=== PATIENT | female | born 2000 | race African-American/Black ===

== ENCOUNTER 2025-06-23 10:12 | Emergency (ER) | payer OTHER ==
[~2025-06-23] VITALS: Ht 170.2 cm; Wt 64.0 kg
[2025-06-23 10:31] VITALS: O2SAT 99
[2025-06-23 11:54] LABS: BASOPHILS % 1.0 % (0.0-2.0); EOSINOPHILS % 2.9 % (0.0-5.0); HEMATOCRIT. 37.6 % (36.0-48.0); HEMOGLOBIN. 12.3 g/dL (12.0-16.0); LYMPHOCYTES % 22.8 % (20.0-50.0); MEAN PLATELET VOLUME 8.6 fl (7.4-10.4); MONOCYTES % 5.6 % (2.0-8.0); NEUTROPHILS % 67.7 % (40.0-76.0); PLATELET 300 x1000/uL (130-400); RED BLOOD CELL COUNT 5.29 mill/uL (4.2-5.4); RED CELL DISTRIBUTION WIDTH 14.9 % (11.6-14.6)
[2025-06-23 12:24] LABS: CREATININE 0.8 mg/dL (0.6-1.0); UREA NITROGEN BLOOD 8 mg/dL (9-23)
[2025-06-23 12:25] LABS: ASPARTATE AMINOTRANSFERASE 20 IU/L (<34)
[2025-06-23 12:26] LABS: BILIRUBIN TOTAL 0.4 mg/dL (0.1-1.0); PROTEIN TOTAL 7.4 g/dL (6.0-8.3)
[2025-06-23] MEDS: IBUPROFEN 400MG TABLET PO ONE (12:40)
[2025-06-23 14:11] LABS: CLARITY URINE CLOUDY (CLEAR); COLOR URINE YELLOW (YELLOW); GLUCOSE URINE NEGATIVE (NEGATIVE); KETONES URINE 3+ (NEGATIVE); LEUKOCYTE ESTERASE URINE 1+ (NEGATIVE); NITRITE URINE NEGATIVE (NEGATIVE); OCCULT BLOOD URINE NEGATIVE (NEGATIVE); PH URINE 5.5 (4.5-8.0); PROTEIN URINE TRACE (NEGATIVE); SPECIFIC GRAVITY URINE 1.032 (1.005-1.030); UROBILINOGEN URINE 0.2 E.U./dL (0.2-1.0)
[2025-06-23 14:53] LABS: SQUAMOUS EPITHELIAL CELL URINE 2+ /lpf (RARE/1+)
[2025-06-23 14:54] LABS: MUCUS URINE TRACE /lpf (< = 2+)
[2025-06-23 14:55] LABS: HYALINE CASTS URINE 0-5 /lpf
[2025-06-23 14:59] LABS: BACTERIA URINE 1+
[2025-06-23] MEDS ORDERED: NITR100C MT (15:08)
[2025-06-23 15:18] VITALS: BP 116/75; PULSE 65; RESP 16; TEMP 36.5; O2SAT 100
== END 2025-06-23 15:21 | disposition home or self-care (01) ==
LOC: ER 10:12
DX: N39.0 Urinary tract infection, site not specified (principal)
CPT/HCPCS: 36415; 76830; 76856; 80053; 81003; 81025; 85025; 99284